=== PATIENT | female | born 1950 | race Caucasian/White ===

== ENCOUNTER 2023-01-23 09:52 | Emergency (ER) | payer OTHER, SELFPAY ==
[2023-01-23 10:02] VITALS: BP 122/65; PULSE 87; RESP 14; TEMP 36.6; O2SAT 96; BMI 28.2
--- NOTE | 2023-01-23 10:02 | DI.RAD.S_ITS ---
PROCEDURE: XR CHEST 1V INDICATIONS: SOB TECHNIQUE: One view of the chest was acquired. COMPARISON: None. FINDINGS: Surgical changes and devices: None. Lungs and pleura: Lungs are clear. No pleural effusions or pneumothorax. Mediastinum: Mediastinal contours appear normal. Heart size is normal. Bones and chest wall: No suspicious bony lesions. Overlying soft tissues appear unremarkable. IMPRESSION: No acute cardiopulmonary abnormality. Dictated by: Jim Duke M.D. on 01/23/2023 at 10:40 Approved by: Jim Duke M.D. on 01/23/2023 at 10:40
--- NOTE | 2023-01-23 10:15 | ED.GENADULT ---
HPI - General Adult General Chief complaint: Upper Respiratory Symptoms Stated complaint: resp issues, not getting enough oxyg Time Seen by Provider: 01/23/23 10:01 Source: patient Mode of arrival: Ambulatory History of Present Illness HPI narrative: Patient is a 72-year-old female. Does have a history of asthma. Only occasionally uses her albuterol inhaler. Over the past 9 days she has had sinus congestion, ear pain, bleeding from her nose, nasal discharge and wheezing. Specifically in the afternoon. She has been doing [id number] medications to include Delsym and also Zyrtec. She is also been using her inhaler. Denies chest pain. No fevers. Related Data Home Medications Medication Instructions Recorded Confirmed levothyroxine 100 mcg tablet 100 mcg PO DAILY 01/23/23 01/23/23 Previous Rx's Medication Instructions Recorded azithromycin 250 mg tablet See Rx Instructions PO .COMPLEX #6 01/23/23 tabs benzonatate 100 mg capsule 100 mg PO TID PRN cough #20 caps 01/23/23 Allergies Allergy/AdvReac Type Severity Reaction Status Date / Time No Known Drug Allergies Allergy Verified 01/23/23 10:06 Review of Systems Constitutional Constitutional: Reports system reviewed and no additional complaints, except as documented ENT Ears, Nose, Mouth, and Throat: Reports system reviewed and no additional complaints, except as documented Respiratory Respiratory: Reports system reviewed and no additional complaints, except as documented Integumentary/Breasts Skin/Breast: Reports system reviewed and no additional complaints, except as documented Hematologic/Lymphatic On Anticoagulants: No Patient History Social History Smoking Status: Never smoker Smoking Status: Never smoker alcohol intake frequency: a few times a week Substance Use Type: does not use Exam Initial Vital Signs Initial Vital Signs: Vital Signs Temperature 97.8 F 01/23/23 10:02 Pulse Rate 87 01/23/23 10:02 Respiratory Rate 14 01/23/23 10:02 Blood Pressure 122/65 01/23/23 10:02 Pulse Oximetry 96 01/23/23 10:02 Oxygen Delivery Method Room Air 01/23/23 10:02 HENMT Head: normal to inspection Ears: TM abnormal bulging bilaterally and with fluid behind the TM bilaterally; not erythematous Nose: external nose normal, nares normal, septum normal, No epistaxis and No nasal discharge Resp Effort & Inspection: normal respiratory effort Auscultation: no wheezes Skin General: no rashes or lesions noted Neuro General: patient alert, patient awake and moves all extremities Extrem General: normal to inspection and capillary refill normal Course Orders Ordered: ED Orders 01/23/23 10:02 XR chest 1V Stat 01/23/23 10:18 Respiratory Panel (Film Array) Stat EKG-12 Lead Stat Vital Signs Vital signs: Vital Signs - 8 hr 01/23/23 10:02 Temperature 97.8 F Pulse Rate 87 Respiratory Rate 14 Blood Pressure 122/65 Pulse Oximetry 96 Oxygen Delivery Method Room Air Medical Decision Making Lab Data Labs: Lab Results 01/23/23 Range/Units 10:18 Chlamy pneumoniae PCR Not detected (Not Detect) Adenovirus (PCR) Not detected (Not Detect) B. pertussis DNA (PCR) Not detected (Not Detecte) B.parapertussis DNA PCR Not detected (Not Detecte) Coronavirus OC43 (PCR) Not detected (Not Detect) Coronavirus HKU1 (PCR) Not detected (Not Detect) Coronavirus 229E (PCR) Not detected (Not Detect) SARS-CoV-2 (PCR) Not detected (Not Detecte) Coronavirus NL63 (PCR) Not detected (Not Detect) Human Metapneumovir PCR Not detected (Not Detect) Influenza Type A (PCR) Not detected (Not Detect) Influenza Type B (PCR) Not detected (Not Detect) M. pneumoniae (PCR) Not detected (Not Detect) Parainfluenza 1 (PCR) Not detected (Not Detect) Parainfluenza 2 (PCR) Not detected (Not Detect) Parainfluenza 3 (PCR) Not detected (Not Detect) Parainfluenza 4 (PCR) Not detected (Not Detect) RSV (PCR) Not detected (Not Detect) Entero/Rhino (PCR) Not detected (Not Detect) Imaging Data Chest x-ray: Radiologist's Impression: PROCEDURE:? XR CHEST 1V ? INDICATIONS:? SOB ? TECHNIQUE:? One view of the chest was acquired.? ? COMPARISON:? None. ? FINDINGS:? ? Surgical changes and devices:? None.? ? Lungs and pleura:? Lungs are clear.? No pleural effusions or pneumothorax.? ? Mediastinum:? Mediastinal contours appear normal.? Heart size is normal.? ? Bones and chest wall:? No suspicious bony lesions.? Overlying soft tissues appear unremarkable.? ? IMPRESSION:? No acute cardiopulmonary abnormality. ECG Data Attestation: I personally reviewed and interpreted this ECG as follows: Interpretation: Sinus rhythm Ventricular rate 82 Normal axis Normal QRS Normal QTC No ST T wave changes MDM Narrative Medical decision making narrative: Her respiratory panel was negative. Chest x-ray is unremarkable. No wheezing. No fevers. She is an obvious upper respiratory infection. We did discuss the possibility of allergen verses virus versus bacteria. Given that she is had a negative respiratory panel this does make the bacterial etiology a little higher although we had an extensive discussion about how we can not specifically determine this. The plan will be as to send her home with continued symptomatic treatment. I will add a prescription for the Tessalon Perles we did discuss other nasal sprays and things that she could tried home to help with the sinus congestion. She is going to kidney with the Zyrtec. I will give her a prescription for antibiotics but she is going to hold on filling this for now and wait to see if her symptoms improve with the above treatments. She was given return precautions. She expressed understanding and agreement. Discharge Plan Departure Patient Disposition: Home Clinical Impression: Upper respiratory infection Instructions: Antihistamine/Decongestant (By mouth) Activity Restrictions/Additional Instructions: I do recommend that you continue with the Zyrtec. You can also try the Flonase/Nasonex. You can also consider trying Afrin to help with the congestion. You can purchase these [id number]. You can also try other cough and cold preparations from [id number] but be sure that you were looking at the gradients because they are very often combination medicines. A prescription for a cough medicine was sent to the pharmacy of her choice. You can take this as needed. You were also given a prescription for antibiotics however recommend holding on this for the next couple days to see if her symptoms improve/resolve. If they do not then you can fill this prescription and start taking it as directed. Contact your primary doctor for a follow-up. Prescriptions: New benzonatate 100 mg capsule 100 mg PO TID PRN (Reason: cough) Qty: 20 0RF azithromycin 250 mg tablet See Rx Instructions .ROUTE .COMPLEX Qty: 6 0RF Rx Instructions: For 250 mg dose pack: take 500 mg today (day 1), then 250 mg for 4 days (days 2-5) No Action levothyroxine 100 mcg Tablet 100 mcg PO DAILY Stand Alone Forms: Patient Portal/API
[2023-01-23 11:29] LABS: Adenovirus Not Detected (Not Detect); B. parapertussis Not Detected (Not Detecte); Bordetella pertussis Not Detected (Not Detecte); Chlamydophila pneumoniae Not Detected (Not Detect); Coronavirus 229E Not Detected (Not Detect); Coronavirus HKU1 Not Detected (Not Detect); Coronavirus NL 63 Not Detected (Not Detect); Coronavirus OC43 Not Detected (Not Detect); Human Metapneumovirus Not Detected (Not Detect); Human Rhinovirus/Enterovirus Not Detected (Not Detect); Influenza A Not Detected (Not Detect); Influenza B Not Detected (Not Detect); Mycoplasma pneumoniae Not Detected (Not Detect); Parainfluenza Virus 1 Not Detected (Not Detect); Parainfluenza Virus 2 Not Detected (Not Detect); Parainfluenza Virus 3 Not Detected (Not Detect); Parainfluenza Virus 4 Not Detected (Not Detect); Respiratory Syncytial Virus Not Detected (Not Detect); SARS- CoV-2 Not Detected (Not Detecte)
[2023-01-23 12:00] VITALS: BP 128/73; PULSE 87; RESP 16; O2SAT 99
== END 2023-01-23 12:16 | disposition home or self-care (01) ==
PROVIDERS: Emergency Provider Emergency Medicine
DX: J06.9 Acute upper respiratory infection, unspecified (principal); R06.02 Shortness of breath; R07.9 Chest pain, unspecified; Z20.822 Contact with and (suspected) exposure to COVID-19
CPT/HCPCS: 71045; 87633; 93005; 93010; 99283; 99284